=== PATIENT | female | born 1975 | race Hispanic/Latino ===

== ENCOUNTER 2024-12-27 19:22 | Emergency (ER) | payer SELFPAY ==
[~2024-12-27] VITALS: Ht 157.5 cm; Wt 104.8 kg
--- NOTE | 2024-12-27 19:38 | ERN ---
ED Note History of Present Illness Stated Complaint: ABD PAIN Chief Complaint: Abdominal Pain Time Seen by MD: 19:25 Dictation: PATIENT IS A 49-YEAR-OLD FEMALE HERE WITH INTERMITTENT AND COLICKY RIGHT UPPER QUADRANT PAIN WORSE AFTER FOOD FOR THE LAST THREE DAYS. NO FEVER NO CHILLS NO NAUSEA VOMITING. SHE STATES SHE STILL HAS A GALLBLADDER. STATES SHE DOES HAVE A HISTORY OF DIABETES HYPERTENSION AND CHOLESTEROL, GETS HER MEDICATIONS IN [place] BUT NEVER SEES DOCTORS. Allergies: Coded Allergies: No Known Allergies (Unverified Allergy, Unknown, 12/27/24) Past Medical History Past Medical History: Diabetes-Type II, High Cholesterol Surgical History: RN Note Reviewed/Agreed w/PFSH: Yes Review of System Dictation CONSTITUTIONAL: NEGATIVE EXCEPT FOR HPI HEAD/FACE: NEGATIVE EXCEPT FOR HPI EENT: NEGATIVE EXCEPT FOR HPI RESPIRATORY: NEGATIVE EXCEPT FOR HPI GASTROINTESTINAL/ABDOMINAL: NEGATIVE EXCEPT FOR HPI COLICKY RIGHT UPPER QUADRANT PAIN GENITOURINARY: NEGATIVE EXCEPT FOR HPI MUSCULOSKELETAL: NEGATIVE EXCEPT FOR HPI INTEGUMENTARY: NEGATIVE EXCEPT FOR HPI NEUROLOGICAL/PSYCH: NEGATIVE EXCEPT FOR HPI HEMATOLOGIC/LYMPHATIC: NEGATIVE EXCEPT FOR HPI ALL SYSTEMS NEGATIVE, EXCEPT NOTED ABOVE. 13 POINT REVIEW OF SYSTEMS ASSESSED AND ALL NEGATIVE EXCEPT FOR ABOVE. Initial Vital Sign VS Vital Signs Date Time Temp Pulse Resp B/P (MAP) Pulse Ox O2 Delivery O2 Flow Rate FiO2 12/27/24 19:32 99.1 82 20 100 Room Air Physical Exam Dictation VITAL SIGNS REVIEWED GENERAL APPEARANCE: ALERT, ORIENTED X 3, MILD ACUTE DISTRESS, WELL DEVELOPED, NO URISHED. OBESE HEAD AND FACE: NON-TRAUMATIC. EYES: PERRL, PINK CONJUNCTIVAS, EYELID NO TRAUMA, ANTERIOR CHAMBER WITH ARCUS SENILIS. EARS: PINNAS INTACT AND NO SIGNS OF TRAUMA OR ERYTHEMA EAR CANALS CLEAR AND NO DISCHARGE TM NO ERYTHEMA NOSE: NO DISCHARGE, NO BLEEDING. OROPHARYNX: MOUTH NORMAL, TONGUE PINK, PHARYNX CLEAR,NO ERYTHEMA, TONSILS NO EXUDATES, NO ABSCESSES NOTED, MUCOUS MEMBRANE MOIST NECK: SUPPLE, NON-TENDER, NO THYROMEGALY, NO MASSES, NO JVD, NO BRUITS BREAST:DEFERRED CHEST:NO TENDERNESS, NO CREPITUS, NO PARADOXICAL MOVEMENT, NO RETRACTIONS LUNGS:CLEAR, WELL-VENTILATED, SYMMETRIC, NO RALES, NO WHEEZING, NO RHONCHI, NO STRIDOR, GOOD BREATH SOUNDS BILATERALLY HEART: REGULAR RATE, REGULAR RHYTHM, NO MURMUR, NO GALLOPS VASCULAR: NO PERIPHERAL EDEMA, ABDOMEN: SOFT, POSITIVE BOWEL SOUNDS, NONDISTENDED, NO GUARDING, MILD RIGHT UPPER QUADRANT TENDERNESS, NO REBOUND, NO MASSES NO HEPATOMEGALY, NO SPLENOMEGALY, NO MEDRANO'S SIGN, NO HERNIAS. RECTAL: DEFERRED GENITAL: DEFERRED NEUROLOGICAL: NORMAL SPEECH, MOTOR FUNCTION INTACT, SENSORY FUNCTION INTACT MUSCULOSKELETAL: NECK NONTENDER, FULL RANGE OF MOTION, BACK NONTENDER, FULL RANGE OF MOTION, EXTREMITIES: NONTENDER, FULL RANGE OF MOTION SKIN: COLOR PINK, DRY, NO TURGOR, NO RASH, NO LACERATIONS, NO ABRASIONS, NO CONTUSIONS. LYMPHATIC: DEFERRED Results (Laboratory/Radiology) Laboratory/Radiology Laboratory Tests Test 12/27/24 19:35 12/27/24 20:15 Urine Color YELLOW (YELLOW) Urine Appearance CLOUDY (CLEAR) H Urine pH 6.0 (5.0-8.0) Urine Specific [place] 1.033 (1.001-1.031) Urine Protein 20 mg/dL (NEGATIVE) H Urine Glucose (UA) 200 mg/dL (NEGATIVE) H Urine Ketones 5 mg/dL (NEGATIVE) H Urine Occult Blood NEGATIVE (NEGATIVE) Urine Nitrate NEGATIVE (NEGATIVE) Urine Bilirubin NEGATIVE mg/dL (NEGATIVE) Urine Urobilinogen 3 mg/dL (0.2-1.0) H Urine Leukocyte Esterase 25 [place]/uL (NEGATIVE) H Urine RBC 2-5 /HPF (0-1) H Urine WBC 6-10 /HPF (0-1) H Urine Squamous Epithelial Cells FEW /HPF (0-2) Urine Bacteria RARE /HPF (None Seen) Urine Hyaline Casts 0-1 /LPF (0-1 /LPF) Urine Other Casts 1 /LPF (None Seen) White Blood Count 7.3 K/uL (4.8-10.8) Red Blood Count 4.59 MIL/uL (4.00-5.50) Hemoglobin 13.1 g/dL (12.0-16.0) Hematocrit 38.7 % (36-48) Mean Corpuscular Volume 84.3 fL (79-99) Mean Corpuscular Hemoglobin 28.5 pg (27.0-33.0) Mean Corpuscular Hemoglobin Concent 33.9 g/dL (32.0-36.0) Red Cell Distribution Width 13.6 % (11.0-15.5) Platelet Count 253 K/uL (130-400) Mean Platelet Volume 9.2 fL (7.5-10.5) Immature Granulocyte % (Auto) 0.4 % (0-1) Neutrophils (%) (Auto) 79.3 % (40.0-77.0) H Lymphocytes (%) (Auto) 13.4 % (21.0-51.0) L Monocytes (%) (Auto) 6.7 % (3.0-13.0) Eosinophils (%) (Auto) 0.1 % (0.0-8.0) Basophils (%) (Auto) 0.1 % (0.0-5.0) Neutrophils # (Auto) 5.8 K/uL (1.8-7.7) Lymphocytes # (Auto) 1.0 K/uL (1.0-4.8) Monocytes # (Auto) 0.5 K/uL (0.1-1.0) Eosinophils # (Auto) 0.01 K/uL (0.00-0.70) Basophils # (Auto) 0.01 K/uL (0.00-0.20) Absolute Immature Granulocyte (auto 0.03 K/uL (0-1) Nucleated Red Blood Cells 0.0 % (0.0-0.19) Sodium Level 145 mmol/L (136-145) Potassium Level 4.8 mmol/L (3.5-5.1) Chloride Level 108 mmol/L (101-111) Carbon Dioxide Level 31 mmol/L (21-32) Blood Urea Nitrogen 17 mg/dL (7-18) Creatinine 0.9 mg/dL (0.5-1.0) Glomerular Filtration Rate Calc 78 mL/min (>90) Random Glucose 197 mg/dL (70-105) H Total Calcium 9.7 mg/dL (8.5-10.1) Lipase 64 U/L (16-77) REASON: Adominal Pain ORDERING PHYSICIAN: ARCHANA SALGADO NP PROCEDURE: [id number] - US ABDOMINAL RUQ\LTD EXAMINATION: US Abdomen Right Upper Quadrant, Limited CLINICAL HISTORY: Abdominal pain TECHNIQUE: Real-time limited ultrasound evaluation of the right upper quadrant with grayscale imaging. COMPARISON: None provided. FINDINGS: LIVER: The liver measures 14 cm in length. The hepatic parenchyma is mildly coarse in echotexture. Main portal vein demonstrates hepatopetal flow at a velocity of 15 cm/sec. GALLBLADDER: The gallbladder wall measures 2 mm in thickness. COMMON BILE DUCT: Common bile duct diameter is 2 mm. PANCREAS: The head and body of the pancreas are within normal limits. The tail is obscured by overlying intestinal gas. RIGHT KIDNEY: The right kidney measures 11.3 x 5.3 x 5.2 cm. COMMENTS: Imaging is limited due to large body habitus. IMPRESSION: Mildly coarse hepatic parenchyma. Hepatopetal flow in the main portal vein at 15 cm/sec. Limited evaluation of the pancreatic tail due to bowel gas. No sonographic evidence of biliary ductal dilation. Imaging limited by large body habitus. /[facility] Reviewed?: Yes ED Course ED Course Orders Procedure Category Date Status Time Cbc With Differential LAB 12/27/24 Complete 19:36 Urinalysis Profile LAB 12/27/24 Complete 19:36 Us Abdominal Ruq\Ltd US 12/27/24 Resulted 19:36 0.9%Nacl 1000ml (Ns PHA 12/27/24 Complete 1000ml) 20:00 Ketorolac PHA 12/27/24 Complete Tromethamine 30mg/Ml 20:00 Lipase LAB 12/27/24 Complete 19:36 Basic Metabolic Panel LAB 12/27/24 Complete 19:36 Culture Urine LOVE 12/27/24 In Process 19:54 Current Medications Medications (Trade) Dose Ordered Sig/[place]ana Route PRN Reason Start Time Stop Time Status Last Admin Dose Admin Ketorolac Tromethamine (toRADol) 30 mg ONCE ONCE IVP 12/27/24 20:00 12/27/24 20:01 DC Sodium Chloride 1,000 ml @ 0 mls/hr ONCE ONCE IV 12/27/24 20:00 12/27/24 20:01 DC Vital Signs Date Time Temp Pulse Resp B/P (MAP) Pulse Ox O2 Delivery O2 Flow Rate FiO2 12/27/24 19:32 99.1 82 20 100 Room Air Medical Decision Making MDM MEDICAL DISCHARGE MAKING BASED ON ABDOMINAL LABS AND ULTRASOUND RIGHT UPPER QUADRANT FOR COLICKY PAIN WORSE AFTER FOOD. NO LEUKOCYTOSIS, BLOOD SUGAR 197 NO ACUTE CYSTITIS RIGHT UPPER QUADRANT ULTRASOUND DEMONSTRATES FATTY LIVER ONLY GALLBLADDER WITH COMMON BILE DUCT NORMAL NO PERICHOLECYSTIC FLUID NO DILATION DX & DISP Disposition: Discharge Departure Impression: Primary Impression: Biliary colic symptom Additional Impressions: Fatty liver, Uncontrolled diabetes mellitus, Stage 2 chronic kidney disease, Obesity Condition: Stable Scripts Dicyclomine HCl (Bentyl) 20 Mg Tab 20 MG PO Q6HPRN PRN for ABDOMINAL PAIN, #20 TAB Prov: ARCHANA SALGADO EDUCATIONAL SPEECH LANGUAGE CLINICIAN 12/27/24 Additional Instructions: FOLLOW-UP WITH PRIMARY CARE PROVIDER IN 1 TO 2 DAYS. TAKE MEDICATIONS DIRECTED HERE IN THE EMERGENCY ROOM. OKAY TO CONTINUE HOME MEDICATIONS UNLESS OTHERWISE DISCUSSED DURING YOUR VISIT IN THE EMERGENCY ROOM TODAY. RETURN TO YOUR NEAREST EMERGENCY ROOM IF SYMPTOMS WORSEN OR IF THERE IS NO IMPROVEMENT. CALL 911 IF YOU NEED IMMEDIATE ASSISTANCE. TAKE TYLENOL OR MOTRIN [id number] NEEDED AND IF NO CONTRAINDICATIONS ARE PRESENT. INCREASE ORAL HYDRATION. A WOUND CULTURE OR URINE CULTURE WAS ORDERED HERE IN THE EMERGENCY ROOM DEPARTMENT PLEASE FOLLOW-UP WITH PRIMARY CARE PROVIDER AND ADVISE THEM TO GET REPEAT PORTS FROM OUR FACILITY. IF YOU HAD ANY TERESA WRAP/SPLINTS THAT WERE APPLIED HERE, PLEASE DO NOT REMOVE THEM UNTIL YOU SEE YOUR PRIMARY CARE OR SPECIALTY. FOLLOW A LOW-FAT DIET. TAKE YOUR DIABETIC MEDICATIONS FROM YOUR DOCTOR IN [place] DIRECTED. TAKE BENTYL DIRECTED FOR ANY PAIN. SEE YOUR PRIMARY CARE DOCTOR IN [place] IN 1-2 DAYS. Referrals: SELF,REFERRAL (PCP) Time of Disposition: 20:50 I have reviewed the case, and I agree with, Diagnosis and Plan ARCHANA SALGADO NP Dec 27, 2024 19:38
[2024-12-27 19:50] LABS: APPEARANCE,URINE CLOUDY (CLEAR); GLUCOSE, URINE (UA) 200 mg/dL (NEGATIVE); LEUKOCYTE ESTERASE ,URINE 25 Leu/uL (NEGATIVE); NITRATE,URINE NEGATIVE (NEGATIVE); OCCULT BLOOD,URINE NEGATIVE (NEGATIVE)
[2024-12-27 19:51] LABS: ADD UA MICROSCOPIC YES
[2024-12-27 19:54] LABS: HYALINE CASTS, URINE 0-1 /LPF (0-1 /LPF); OTHER CASTS, URINE 1 /LPF (None Seen); SQUAMOUS EPITHELIAL CELL,UR FEW /HPF (0-2)
[2024-12-27 20:23] LABS: IMMATURE GRANULOCYTE ABSOLUTE 0.03 K/uL (0-1); NUCLEATED RED BLOOD CELLS 0.0 % (0.0-0.19); PLATELET COUNT (AUTO) 253 K/uL (130-400); RED BLOOD CELL COUNT(AUTO) 4.59 MIL/uL (4.00-5.50); RED CELL DISTRIBUTION WIDTH 13.6 % (11.0-15.5); WHITE BLOOD COUNT (AUTO) 7.3 K/uL (4.8-10.8)
[2024-12-27 20:34] LABS: CREATININE 0.9 mg/dL (0.5-1.0); GLOMERULAR FILTR. RATE CALC 78.0 mL/min (>90); GLUCOSE,RANDOM 197.0 mg/dL (70-105); SODIUM SERUM 145.0 mmol/L (136-145); UREA NITROGEN, BLOOD 17.0 mg/dL (7-18)
--- NOTE | 2024-12-27 20:34 | HMCIMG ---
EXAMINATION: US Abdomen Right Upper Quadrant, Limited CLINICAL HISTORY: Abdominal pain TECHNIQUE: Real-time limited ultrasound evaluation of the right upper quadrant with grayscale imaging. COMPARISON: None provided. FINDINGS: LIVER: The liver measures 14 cm in length. The hepatic parenchyma is mildly coarse in echotexture. Main portal vein demonstrates hepatopetal flow at a velocity of 15 cm/sec. GALLBLADDER: The gallbladder wall measures 2 mm in thickness. COMMON BILE DUCT: Common bile duct diameter is 2 mm. PANCREAS: The head and body of the pancreas are within normal limits. The tail is obscured by overlying intestinal gas. RIGHT KIDNEY: The right kidney measures 11.3 x 5.3 x 5.2 cm. COMMENTS: Imaging is limited due to large body habitus. IMPRESSION: Mildly coarse hepatic parenchyma. Hepatopetal flow in the main portal vein at 15 cm/sec. Limited evaluation of the pancreatic tail due to bowel gas. No sonographic evidence of biliary ductal dilation. Imaging limited by large body habitus. /[place]
[2024-12-27] MEDS ORDERED: DICY20TA2 PO (20:52)
--- NOTE | 2024-12-27 21:22 | NUR ---
ASSUMED PT CARE
[2024-12-27] MEDS: 0.9%NACL 1000ML 1,000 ML IV ONE (21:32)
[2024-12-27 22:18] VITALS: BP 142/66; PULSE 75; RESP 18; TEMP 98.8; O2SAT 99
== END 2024-12-27 22:25 | disposition home or self-care (01) ==
LOC: EDH 19:22
DX: K80.50 Calculus of bile duct without cholangitis or cholecystitis without obstruction (principal); K76.0 Fatty (change of) liver, not elsewhere classified; E11.65 Type 2 diabetes mellitus with hyperglycemia; I12.9 Hypertensive chronic kidney disease with stage 1 through stage 4 chronic kidney disease, or unspecified chronic kidney disease; E11.22 Type 2 diabetes mellitus with diabetic chronic kidney disease; N18.2 Chronic kidney disease, stage 2 (mild); E78.00 Pure hypercholesterolemia, unspecified; E66.9 Obesity, unspecified; Z68.41 Body mass index [BMI] 40.0-44.9, adult
CPT/HCPCS: 99285; 96374; 76705; 80048; 83690; 85025; 87086; 81001; 36415; J1885